=== PATIENT | female | born 1960 | race Caucasian/White ===

== ENCOUNTER 2024-08-07 06:50 | Outpatient (CLI) | payer MEDICARE, OTHER, SELFPAY ==
--- NOTE | 2024-08-07 07:00 | US_ITS ---
WS: [id number] RENAL ULTRASOUND HISTORY: STG 3 CKD COMPARISON: None available. TECHNIQUE: 2-D and color Doppler imaging of the kidney submitted. Right kidney: 11.3 cm x 4.8 cm x 5.7 cm. Cortex: 1.0 cm Normal echogenicity with no hydronephrosis or mass. Mild cortical thinning. Left kidney: 12.3 cm x 4.4 cm x 4.9 cm. Cortex: 0.9 cm Normal size kidney with mild cortical thinning. Cortical thinning is predominantly over the mid and l ower kidney. No mass. Aorta: Mild atherosclerosis. Urinary Bladder: Normal distention. US/US renal BI* [id number] IMPRESSION: 1. Normal size kidneys with no hydronephrosis. 2. No solid mass. 3. Very mild bilateral cortical thinning.
== END 2024-08-07 06:51 | disposition home or self-care (01) ==
PROVIDERS: PCP Nurse Practitioner Family; Visit Provider Nurse Practitioner
DX: N18.30 Chronic kidney disease, stage 3 unspecified (principal)
CPT/HCPCS: 76770